=== PATIENT | male | born 1980 | race African-American/Black ===

== ENCOUNTER 2017-06-09 12:02 | Emergency (ER) | payer OTHER ==
[~2017-06-09] VITALS: Ht 162.6 cm; Wt 68.0 kg
[~2017-06-09 12:02] MED LIST: ATEN50TA PO; CHOL100013 PO; HYDR12.58 PO; LINA145C PO; PANT40TA5 PO; POLY17PO29 PO; TAMS0.4C2 PO
[2017-06-09 13:46] LABS: BILIRUBIN,URINE NEGATIVE (NEG); GLUCOSE,URINE NEGATIVE (NEG); NITRITE,URINE NEGATIVE (NEG); PROTEIN,URINE NEGATIVE (NEG-TRACE); UROBILINOGEN,URINE 0.2 mg/dL (0.2 mg/dL)
[2017-06-09 13:51] LABS: BASO # 0.1 x10^3/uL (0.0-0.2); BASO % 1 % (0-3); EOS % 4 % (0-3); HEMATOCRIT 41.2 % (39.0-53.0); HEMOGLOBIN 13.5 g/dL (13.0-17.5); LYMPH % 37 % (24-48); MEAN CORPUSCULAR HEMOGLOBIN 30 pg (25-35); MEAN CORPUSCULAR HGB CONC 33 g/dL (31-37); MEAN CORPUSCULAR VOLUME 91 fL (79-100); MONO % 8 % (0-9); NEUT % 51 % (31-73); PLATELET COUNT 187 x10^3/uL (140-400); RED BLOOD COUNT 4.56 x10^6/uL (4.30-5.70); RED CELL DISTRIBUTION WIDTH 13.7 % (11.5-14.5); WHITE BLOOD COUNT 8.3 x10^3/uL (4.0-11.0)
[2017-06-09 13:52] LABS: CREATININE 0.9 mg/dL (0.7-1.3)
[2017-06-09 13:53] LABS: BARBITURATES NEG (NEG); BENZODIAZEPINES NEG (NEG); CANNABINOIDS POS (NEG); COCAINE NEG (NEG); METHADONE POS (NEG); OPIATES NEG (NEG); PHENCYCLIDINE NEG (NEG)
[2017-06-09 13:53] LABS: GFR 114.3; POTASSIUM 4.2 mmol/L (3.5-5.1)
[2017-06-09 13:59] LABS: ALBUMIN 3.7 g/dL (3.4-5.0); TOTAL BILIRUBIN 0.3 mg/dL (0.2-1.0); TOTAL PROTEIN 7.3 g/dL (6.4-8.2)
[2017-06-09 14:07] LABS: BACTERIA,URINE 0 /HPF (0-FEW); RBC,URINE 0 /HPF (0-2); WBC,URINE OCC /HPF (0-4)
--- NOTE | 2017-06-09 14:07 | RAD ---
Portable chest, 06/09/2017: History: Chest pain Comparison is made to a study from 10/15/2011. The heart size and pulmonary vascularity are normal. There is a calcified granuloma in the left apex. No pulmonary infiltrates are seen. There is no evidence of pleural fluid. Moderate arthritic change is present at the left glenohumeral joint. IMPRESSION: No acute cardiopulmonary abnormality is detected.
[2017-06-09 14:08] LABS: CKMB MASS 1.6 ng/mL (0.0-3.6)
[2017-06-09] MEDS ORDERED: METH4TAB2 PO (15:06)
--- NOTE | 2017-06-09 15:06 | PHYS DOC ---
Past Medical History Past Medical History: Constipation, GERD, Hypertension, Other Additional Past Medical Histor: OSTEOGENESIS IMPERFECTA Past Surgical History: Other Additional Past Surgical Histo: R WRIST ORIF,CARPAL TUNNEL,L FEMUR ORIF Additional Information: 1 PPD Alcohol Use: None Drug Use: Marijuana Adult General Chief Complaint Chief Complaint: CHEST PAIN HPI HPI Patient is a 37 year old male who presents with complaint of left-sided chest pain. Patient states his symptoms started shortly prior to arrival. The patient states he's had problems with recurrent left-sided chest pain and states that he has an appointment to see cardiology as an outpatient at [facility] for further workup. Patient states that he started experiencing sharp left- sided pain in his chest wall. Patient states that this lasted very briefly. The patient however had an additional episode. Patient denies any known triggers for his chest pain. Patient has history of osteogenesis imperfecta and history of use of chronic narcotic pain medication resulting in dysmotility issues chronic constipation. Patient states that he has had previous workups for chest pain which did not show any evidence of cardiac ischemia. The patient states that he currently is not having chest pain at this time. Patient denies any associated shortness of breath, nausea, or diaphoresis with his symptoms. The patient is currently rating his pain as 0 out of 10. Due to the severity of the pain the patient came to the emergency department for further evaluation as his symptoms concerned him. Review of Systems Review of Systems Constitutional: Denies fever or chills [] Eyes: Denies change in visual acuity, redness, or eye pain [] HENT: Denies nasal congestion or sore throat [] Respiratory: Denies cough or shortness of breath [] Cardiovascular: Chest pain, currently resolved [] GI: Denies abdominal pain, nausea, vomiting, bloody stools or diarrhea [] : Denies dysuria or hematuria [] Musculoskeletal: Denies back pain or joint pain [] Integument: Denies rash or skin lesions [] Neurologic: Denies headache, focal weakness or sensory changes [] Allergies Allergies Allergies Coded Allergies Type Severity Reaction Last Updated Verified No Known Drug Allergies 04/06/16 No Physical Exam Physical Exam Constitutional: Well developed, well nourished, no acute distress, non-toxic appearance. [] HENT: Normocephalic, atraumatic, bilateral external ears normal, oropharynx moist, no oral exudates, nose normal. [] Eyes: PERRLA, EOMI, conjunctiva normal, no discharge. [] Neck: Normal range of motion, no tenderness, supple, no stridor. [] Cardiovascular:Heart rate regular rhythm, no murmur [] Lungs & Thorax: Bilateral breath sounds clear to auscultation [] Abdomen: Bowel sounds normal, soft, no tenderness, no masses, no pulsatile masses. [] Skin: Warm, dry, no erythema, no rash. [] Back: No tenderness, no CVA tenderness. [] Extremities: No tenderness, no cyanosis, no clubbing, ROM intact, no edema. [] Neurologic: Alert and oriented X 3, normal motor function, normal sensory function, no focal deficits noted. [] Current Patient Data Vital Signs Vital Signs Date Time Temp Pulse Resp B/P (MAP) Pulse Ox O2 Delivery O2 Flow Rate FiO2 06/09/17 12:08 98.2 58 16 155/106 (122) 100 Room Air 98.2 Lab Values Laboratory Tests Test 06/09/17 12:22 06/09/17 12:29 Urine Collection Type Unknown Urine Color Yellow Urine Clarity Clear Urine pH 7.0 Urine Specific [place] 1.025 Urine Protein Negative mg/dL (NEG-TRACE) Urine Glucose (UA) Negative mg/dL (NEG) Urine Ketones (Stick) Negative mg/dL (NEG) Urine Blood Negative (NEG) Urine Nitrite Negative (NEG) Urine Bilirubin Negative (NEG) Urine Urobilinogen Dipstick 0.2 mg/dL (0.2 mg/dL) Urine Leukocyte Esterase Negative (NEG) Urine RBC 0 /HPF (0-2) Urine WBC Occ /HPF (0-4) Urine Bacteria 0 /HPF (0-FEW) Urine Mucus Mod /LPF Urine Opiates Screen Neg (NEG) Urine Methadone Screen Pos (NEG) Urine Barbiturates Neg (NEG) Urine Phencyclidine Screen Neg (NEG) Urine Amphetamine/Methamphetamine Neg (NEG) Urine Benzodiazepines Screen Neg (NEG) Urine Cocaine Screen Neg (NEG) Urine Cannabinoids Screen Pos (NEG) Urine Ethyl Alcohol Neg (NEG) White Blood Count 8.3 x10^3/uL (4.0-11.0) Red Blood Count 4.56 x10^6/uL (4.30-5.70) Hemoglobin 13.5 g/dL (13.0-17.5) Hematocrit 41.2 % (39.0-53.0) Mean Corpuscular Volume 91 fL (79-100) Mean Corpuscular Hemoglobin 30 pg (25-35) Mean Corpuscular Hemoglobin Concent 33 g/dL (31-37) Red Cell Distribution Width 13.7 % (11.5-14.5) Platelet Count 187 x10^3/uL (140-400) Neutrophils (%) (Auto) 51 % (31-73) Lymphocytes (%) (Auto) 37 % (24-48) Monocytes (%) (Auto) 8 % (0-9) Eosinophils (%) (Auto) 4 % (0-3) H Basophils (%) (Auto) 1 % (0-3) Neutrophils # (Auto) 4.2 x10^3uL (1.8-7.7) Lymphocytes # (Auto) 3.0 x10^3/uL (1.0-4.8) Monocytes # (Auto) 0.6 x10^3/uL (0.0-1.1) Eosinophils # (Auto) 0.3 x10^3/uL (0.0-0.7) Basophils # (Auto) 0.1 x10^3/uL (0.0-0.2) D-Dimer ([place]) 0.30 ug/mlFEU (0.00-0.50) Sodium Level 139 mmol/L (136-145) Potassium Level 4.2 mmol/L (3.5-5.1) Chloride Level 104 mmol/L (98-107) Carbon Dioxide Level 31 mmol/L (21-32) Anion Gap 4 (6-14) L Blood Urea Nitrogen 14 mg/dL (8-26) Creatinine 0.9 mg/dL (0.7-1.3) Estimated GFR (Cockcroft-Gault) 114.3 BUN/Creatinine Ratio 16 (6-20) Glucose Level 87 mg/dL (70-99) Calcium Level 9.0 mg/dL (8.5-10.1) Magnesium Level 2.0 mg/dL (1.8-2.4) Total Bilirubin 0.3 mg/dL (0.2-1.0) Aspartate Amino Transferase (AST) 21 U/L (15-37) Alanine Aminotransferase (ALT) 20 U/L (16-63) Alkaline Phosphatase 78 U/L (46-116) Creatine Kinase 308 U/L (39-308) Creatine Kinase MB (Mass) 1.6 ng/mL (0.0-3.6) Creatine Kinase MB Relative Index 0.5 % (0-4) Troponin I Quantitative < 0.017 ng/mL (0.000-0.055) Total Protein 7.3 g/dL (6.4-8.2) Albumin 3.7 g/dL (3.4-5.0) Albumin/Globulin Ratio 1.0 (1.0-1.7) Lipase 70 U/L (73-393) L Laboratory Tests 06/09/17 12:29 Laboratory Tests 06/09/17 12:29 EKG EKG Interpreted by me: Heart rate 56, sinus rhythm, normal intervals, normal axis, no acute ST/T-wave abnormalities present [] Radiology/Procedures Radiology/Procedures [facility] [address] [place] [address] IMAGING REPORT Signed PATIENT: JANKI DALY ACCOUNT: [id number] : 1980 LOCATION: ER AGE: 37 SEX: M EXAM STATUS: REG ER ORD. PHYSICIAN: SHEILA PICHARDO MD REASON: intermittent chest pain PROCEDURE: PORTABLE CHEST 1V Portable chest, 06/09/2017: History: Chest pain Comparison is made to a study from 10/15/2011. The heart size and pulmonary vascularity are normal. There is a calcified granuloma in the left apex. No pulmonary infiltrates are seen. There is no evidence of pleural fluid. Moderate arthritic change is present at the left glenohumeral joint. IMPRESSION: No acute cardiopulmonary abnormality is detected. DICTATED and SIGNED BY: HONEY [place] MD DATE: 06/09/17 1400 CC: SHEILA PICHARDO MD; NO PCP ~ [] Course & Med Decision Making Course & Med Decision Making Pertinent Labs and Imaging studies reviewed. (See chart for details) Patient's lab work was unremarkable and did not show any acute life-threatening cause for patient's chest pain. Etiology of patient's chest pain is unclear but may be related to musculoskeletal pain versus possible referred to GI discomfort. The patient will be started on Medrol Dosepak to relieve possible chest wall inflammation. Advised follow-up with primary doctor in the next 3-5 days for reevaluation and return emergency department for any worsening symptoms. Patient was understanding and agreement with treatment plan. Dragon Disclaimer Dragon Disclaimer This electronic medical record was generated, in whole or in part, using a voice recognition dictation system. Departure Departure Impression: Primary Impression: Atypical chest pain Disposition: HOME, SELF-CARE Condition: IMPROVED Referrals: NO PCP (PCP) Patient Instructions: Chest Pain (Nonspecific) Additional Instructions: Follow-up with your primary doctor in 3-5 days for reevaluation. Return to emergency department for any worsening symptoms. Scripts Methylprednisolone (MEDROL) 4 Mg Tab.ds.pk 1 PKG PO UD, #1 PKG Prov: SHEILA PICHARDO MD 06/09/17 SHEILA PICHARDO MD Jun 09, 2017 15:06
[2017-06-09 15:09] VITALS: BP 128/90
--- NOTE | 2017-06-09 15:19 | EKG ---
[facility] [address] [place] [address] Test Date: 2017-06-09 Test Time: 12:10:14 Pat Name: JANKI DALY Department: Room: Gender: M [employer]: : 1980 Requested By: SHEILA PICHARDO Order Number: [id number] Reading MD: Garcia Yang Measurements Intervals [place] Rate: 56 P: 43 DE: 156 QRS: 33 QRSD: 86 T: 16 QT: 476 QTc: 462 Interpretive Statements SINUS RHYTHM NORMAL ECG Electronically Signed On 06-12-2017 14:58:13 CDT by Garcia Yang
== END 2017-06-09 15:29 | disposition home or self-care (01) ==
LOC: ER 12:02
DX: R07.89 Other chest pain (principal); I10 Essential (primary) hypertension; K21.9 Gastro-esophageal reflux disease without esophagitis; F12.10 Cannabis abuse, uncomplicated
CPT/HCPCS: 36415; 71010; 80053; 80307; 81001; 82553; 83690; 83735; 84484; 85027; 85379; 93005; 99285-25; G0479